=== PATIENT | female | born 1975 | race Caucasian/White ===

== ENCOUNTER 2017-08-07 09:49 | Inpatient (IN) | payer OTHER ==
[2017-07-17 08:45] VITALS: BMI 36.3
--- NOTE | 2017-08-07 01:24 | CP.PCM.HP ---
History of Present Illness - History of Present Illness History of Present Illness: 42yo with h/o large fibroid and menorrhagia reporting here today for hysterectomy. The risk, benefits and alternatives had been d/w the patient and all questions had been answered. Pt had opted to go for the procedured and a consent has been obtained. Present on Admission - Present on Admission Any Indicators Present on Admission: No Past Patient History - Infectious Disease Hx of Infectious Diseases: None - Past Medical History & Family History Past Medical History?: Yes - Past Social History Smoking Status: Never Smoked - CARDIAC Hx Cardiac Disorders: Yes Hx Hypercholesterolemia: Yes - PULMONARY Hx Respiratory Disorders: No - NEUROLOGICAL Hx Neurological Disorder: No - HEENT Hx HEENT Problems: No - RENAL Hx Chronic Kidney Disease: No - ENDOCRINE/METABOLIC Hx Endocrine Disorders: Yes Hx Hypothyroidism: Yes - HEMATOLOGICAL/ONCOLOGICAL Hx Blood Disorders: No - INTEGUMENTARY Hx Dermatological Problems: No - MUSCULOSKELETAL/RHEUMATOLOGICAL Hx Musculoskeletal Disorders: Yes Other/Comment: SHOULDER PAIN - GASTROINTESTINAL Hx Gastrointestinal Disorders: No - GENITOURINARY/GYNECOLOGICAL Hx Genitourinary Disorders: Yes Other/Comment: HX:ovarian cyst. HX: UTERINE LEIOMYOMA : 4 Para: 4 - PSYCHIATRIC Hx Psychophysiologic Disorder: No Hx Substance Use: No - SURGICAL HISTORY Hx Surgeries: No - ANESTHESIA Hx Anesthesia: No Meds Allergies/Adverse Reactions: Allergies Allergy/AdvReac Type Severity Reaction Status Date / Time No Known Allergies Allergy Verified 03/05/17 12:26 Physical Exam - Constitutional Appears: Well - Eye Exam Eye Exam: EOMI - Respiratory Exam Respiratory Exam: Clear to Auscultation Bilateral, NORMAL BREATHING PATTERN - Cardiovascular Exam Cardiovascular Exam: REGULAR RHYTHM, RRR - GI/Abdominal Exam GI & Abdominal Exam: Normal Bowel Sounds, Soft - Exam External exam: NORMAL EXTERNAL EXAM Bimanual exam: Uterine Enlargement - Extremities Exam Extremities exam: Positive for: normal inspection - Neurological Exam Neurological exam: Oriented x3 - Skin Skin Exam: Normal Color Assessment & Plan (1) Excessive and frequent menstruation with regular cycle Status: Acute (2) Leiomyoma of uterus Status: Acute - Assessment and Plan (Free Text) Plan: NPO IV Fluids Mefoxin 2gms IVPB before incision Sequential Compression Device - Date & Time Date: 08/07/17 Time: 08:30 Decision To Admit - Pt Status Changed To: Hospital Disposition Of: Inpatient - Admit Certification Admit to Inpatient:: After my assessment, the patient will require hospitalization for at least two midnights. This is because of the severity of symptoms shown, intensity of services needed, and/or the medical risk in this patient being treated as an outpatient. - InPatient: Physician Admission Certification:: scott - . 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
[2017-08-07] MEDS ORDERED: Clindamycin 2% Vaginal Cream(40 gm) ONE (13:03)
[2017-08-07] MEDS ORDERED: Midazolam 2 MG/2 ML VIAL ONE (13:13)
[2017-08-07] MEDS ORDERED: Propofol 10 mg/ml Inj (20 ML) ONE (13:13)
[2017-08-07] MEDS ORDERED: Lidocaine Hydrochloride 5 ML INJ ONE (13:14)
[2017-08-07] MEDS ORDERED: Lactated Ringer's 1,000 ML IV ONE ×3 (13:38→16:09)
[2017-08-07] MEDS ORDERED: Rocuronium 10 mg/ml (5 ml) ONE (13:38)
[2017-08-07] MEDS ORDERED: cefOXitin IV 2 gm in Dextrose 2 GM/50 ML BAG IVPB ONE (13:43)
[2017-08-07] MEDS ORDERED: Vasopressin 20 Units/ml Inj ONE (13:44)
[2017-08-07] MEDS ORDERED: Neostigmine Methylsulfate 3mg/3ml Syringe IV ONE (15:50)
[2017-08-07] MEDS ORDERED: Oxycodone/Acetaminophen 5/325 mg Tab PO PRN ×2 (16:14→16:40)
[2017-08-07] MEDS ORDERED: Simethicone 80 mg Chewtab PO PRN (16:42)
[2017-08-07] MEDS: HYDROmorphone 0.5 mg/0.5 ml ISec IVP PRN ×3 (16:43→18:12)
[2017-08-07] MEDS ORDERED: Sodium Chloride 0.9% 1,000 ML IV SCH (16:45)
[2017-08-07] MEDS ORDERED: DiphenhydrAMINE 50 mg/ml Inj IVP PRN (17:26)
[2017-08-07] MEDS ORDERED: Naloxone 0.4 mg/ml Inj (Adult) IVP PRN (17:26)
[2017-08-07] MEDS: Sodium Chloride 0.9% 1,000 ML IV SCH (18:45)
[2017-08-07] MEDS: Morphine Monoject Barrel PCA 1mg/ml IV PRN (18:55)
[2017-08-07] MEDS ORDERED: Sodium Chloride 0.9% 1,000 ML IV ONE (18:55)
--- NOTE | 2017-08-07 20:28 | PCM.SURG1 ---
Surgeon's Initial Post Op Note - Surgeon's Notes Surgeon: Dr Toscano Rug Setter [place]: Brianda Coon( FP Resident ) Type of Anesthesia: General Endo Anesthesia Administered By: KIKO Roberts Supervised by Dr Farrell Pre-Operative Diagnosis: Fibroid Uterus with Menorrhagia Operative Findings: 12 week sized Anteverted Multinodular Fibroid uterus. Normal looking bilateral ovaries, left hydrosalpinx, normal looking Right fallopian tubes. IVF Intake- 3000mls. EBL- 500mls. Urine output- 400mls of clear urine Post-Operative Diagnosis: Same as Preop Diagnosis Operation Performed: Total Abdominal Hysterectomy and Bilateral Salpingectomy Specimen/Specimens Removed: Uterus with Cervix,. Bilateral fallopian tubes. Estimated Blood Loss: EBL {In ML}: 500 Post-Op Condition: Good Date of Surgery/Procedure: 08/07/17 Time of Surgery/Procedure: 16:10
[2017-08-07] MEDS ORDERED: Influenza Vaccine 60 mcg/0.5 mL SYR (4YR UP) IM ONE (21:00)
[2017-08-07] MEDS: cefOXitin IV 2 gm in Dextrose 2 GM/50 ML BAG IVPB SCH (22:01)
[2017-08-07] MEDS: Lactated Ringer's 1,000 ML IV SCH (23:46)
[2017-08-08] MEDS: cefOXitin IV 2 gm in Dextrose 2 GM/50 ML BAG IVPB SCH ×2 (05:21→13:23)
[2017-08-08] MEDS: Sodium Chloride 0.9% 1,000 ML IV SCH (05:22)
[2017-08-08 07:33] LABS: BASO % 0.3 % (0.0-2.0); EOS % 0.3 % (0.0-4.0); HEMATOCRIT 33.8 % (34.0-47.0); LYMPH # 1.7 K/uL (1.0-4.3); LYMPH % 19.5 % (20.0-40.0); MEAN CELL VOLUME 82.5 fL (81.0-99.0); MEAN CORPUSCULAR HEMOGLOBIN 27.4 pg (27.0-31.0); MEAN CORPUSCULAR HGB CONC 33.2 g/dL (33.0-37.0); MEAN PLATELET VOLUME 8.5 fL (7.2-11.7); MONO # 0.6 K/uL (0.0-0.8); MONO % 6.6 % (0.0-10.0); RED CELL DISTRIBUTION WIDTH 14.4 % (11.5-14.5); WHITE BLOOD COUNT 8.9 K/uL (4.8-10.8)
[2017-08-08 07:41] LABS: CHLORIDE 99 mmol/L (98-107); POTASSIUM 3.9 mmol/L (3.6-5.2); SODIUM 133 mmol/L (132-148)
[2017-08-08 07:44] LABS: ALKALINE PHOSPHATASE 53 U/L (38-126); ALT/SGPT 26 U/L (9-52); AST/SGOT 24 U/L (14-36); BILIRUBIN,TOTAL 0.6 mg/dL (0.2-1.3); BLOOD UREA NITROGEN 7 mg/dL (7-17); CARBON DIOXIDE 25 mmol/L (22-30); GFR AFRICAN-AMERICAN > 60; GLUCOSE,RANDOM 116 mg/dL (65-105); TOTAL PROTEIN 6.4 g/dL (6.3-8.3)
[2017-08-08 07:45] LABS: CALCIUM 7.8 mg/dl (8.6-10.4)
[2017-08-08] MEDS: Morphine Monoject Barrel PCA 1mg/ml IV PRN (07:48)
[2017-08-08] MEDS ORDERED: Pneumococcal 23-Valent Vaccine IM ONE (10:00)
[2017-08-08 14:44] LABS: BASO % 0.4 % (0.0-2.0); EOS % 0.3 % (0.0-4.0); HEMATOCRIT 34.3 % (34.0-47.0); LYMPH # 1.6 K/uL (1.0-4.3); LYMPH % 17.1 % (20.0-40.0); MEAN CELL VOLUME 82.3 fL (81.0-99.0); MEAN CORPUSCULAR HEMOGLOBIN 27.5 pg (27.0-31.0); MEAN CORPUSCULAR HGB CONC 33.5 g/dL (33.0-37.0); MEAN PLATELET VOLUME 8.1 fL (7.2-11.7); MONO # 0.5 K/uL (0.0-0.8); MONO % 5.3 % (0.0-10.0); RED CELL DISTRIBUTION WIDTH 14.4 % (11.5-14.5); WHITE BLOOD COUNT 9.4 K/uL (4.8-10.8)
--- NOTE | 2017-08-08 16:08 | CP.PCM.PN ---
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 Patient states she continues to have abdominal pain. Patient states she is still feeling nauseous and has not been able to eat very much today. Objective - Vital Signs/Intake and Output Vital Signs (last 24 hours): Temp Pulse Resp BP Pulse Ox 98.6 F 92 H 20 124/68 97 08/08/17 12:07 08/08/17 12:07 08/08/17 12:07 08/08/17 12:07 08/08/17 12:07 Intake and Output: 08/08/17 08/08/17 06:59 18:59 Intake Total 950 Output Total 950 1000 Balance -950 -50 - Medications Medications: Current Medications Diphenhydramine HCl (Benadryl) 25 mg IVP Q6 PRN PRN Reason: Itching / Pruritus Lactated Ringer's (Lactated Ringer's) 1,000 mls @ 150 mls/hr IV .Q6H40M [facility] Last Admin: 08/07/17 23:46 Dose: Not Given Ibuprofen (Motrin Tab) 600 mg PO Q6H PRN PRN Reason: Pain, Mild (1-3) Last Admin: 08/08/17 15:31 Dose: 600 mg Naloxone HCl (Narcan) 0.04 mg IVP Q2M PRN PRN Reason: To reverse sedation Ondansetron HCl (Zofran Inj) 4 mg IVP Q8H PRN PRN Reason: Nausea/Vomiting Last Admin: 08/08/17 14:27 Dose: 4 mg Oxycodone/Acetaminophen (Percocet 5/325 Mg Tab) 1 tab PO Q4 PRN PRN Reason: Pain, moderate (4-7) Stop: 08/10/17 16:15 Oxycodone/Acetaminophen (Percocet 5/325 Mg Tab) 2 tab PO Q4 PRN PRN Reason: Pain, severe (8-10) Stop: 08/10/17 16:41 Last Admin: 08/08/17 12:08 Dose: 2 tab Simethicone (Mylicon Chew Tab) 80 mg PO Q6H PRN PRN Reason: GI distress - Labs Labs: 08/08/17 14:38 08/08/17 07:20 - Constitutional Appears: In Acute Distress - Head Exam Head Exam: ATRAUMATIC, NORMAL INSPECTION, NORMOCEPHALIC - Eye Exam Eye Exam: EOMI, Normal appearance - ENT Exam ENT Exam: Mucous Membranes Moist - Respiratory Exam Respiratory Exam: Clear to Ausculation Bilateral, NORMAL BREATHING PATTERN - Cardiovascular Exam Cardiovascular Exam: REGULAR RHYTHM, RRR - GI/Abdominal Exam GI & Abdominal Exam: Soft, Tenderness, Normal Bowel Sounds Additional comments: Abdominal incision is dry and intact. - Extremities Exam Extremities Exam: Normal Inspection. absent: Pedal Edema, Tenderness - Neurological Exam Neurological Exam: Alert, Awake, Oriented x3 - Psychiatric Exam Psychiatric exam: Normal Affect, Normal Mood - Skin Skin Exam: Normal Color, Warm Assessment and Plan - Assessment and Plan (Free Text) Assessment: 1.) Total Abdominal Hysterectomy and Bilateral Salpingectomy - s/p post op day 1 - H/H: 11.2/33.8 - Repeat H/H: 11.5/34.3 - Diet Advanced - Hook Removed - Continue pain management - Encourage ambulation Case discussed with Dr. Everton Pete PGY-1
[2017-08-08] MEDS: Lactated Ringer's 1,000 ML IV SCH (19:35)
[2017-08-09] MEDS ORDERED: Influenza Virus Vaccine 45 mcg/0.5 ml Syr (36 months - 7 yrs) IM ONE (10:00)
[2017-08-09] MEDS ORDERED: Aluminum Hydroxide/Magnesium Hydroxide Susp (30 mL) PO PRN (10:07)
[2017-08-09 10:48] VITALS: RESP 20
--- NOTE | 2017-08-09 17:20 | CP.PCM.DIS ---
Provider - Provider Date of Admission: 08/07/17 16:15 Attending physician: Edgar Toscano Time Spent in preparation of Discharge (in minutes): 40 Hospital Course - Lab Results Lab Results: Most Recent Lab Values WBC 9.4 K/uL (4.8-10.8) 08/08/17 14:38 RBC 4.17 Mil/uL (3.80-5.20) 08/08/17 14:38 Hgb 11.5 g/dL (11.0-16.0) 08/08/17 14:38 Hct 34.3 % (34.0-47.0) 08/08/17 14:38 MCV 82.3 fL (81.0-99.0) 08/08/17 14:38 MCH 27.5 pg (27.0-31.0) 08/08/17 14:38 MCHC 33.5 g/dL (33.0-37.0) 08/08/17 14:38 RDW 14.4 % (11.5-14.5) 08/08/17 14:38 Plt Count 194 K/uL (130-400) 08/08/17 14:38 MPV 8.1 fL (7.2-11.7) 08/08/17 14:38 Neut % (Auto) 76.9 % (50.0-75.0) H 08/08/17 14:38 Lymph % (Auto) 17.1 % (20.0-40.0) L 08/08/17 14:38 [place] % (Auto) 5.3 % (0.0-10.0) 08/08/17 14:38 Eos % (Auto) 0.3 % (0.0-4.0) 08/08/17 14:38 Baso % (Auto) 0.4 % (0.0-2.0) 08/08/17 14:38 Neut # 7.2 K/uL (1.8-7.0) H 08/08/17 14:38 Lymph # 1.6 K/uL (1.0-4.3) 08/08/17 14:38 [place]shaw # 0.5 K/uL (0.0-0.8) 08/08/17 14:38 Eos # 0.0 K/uL (0.0-0.7) 08/08/17 14:38 Baso # 0.0 K/uL (0.0-0.2) 08/08/17 14:38 Sodium 133 mmol/L (132-148) 08/08/17 07:20 Potassium 3.9 mmol/L (3.6-5.2) 08/08/17 07:20 Chloride 99 mmol/L (98-107) 08/08/17 07:20 Carbon Dioxide 25 mmol/L (22-30) 08/08/17 07:20 Anion Gap 13 (10-20) 08/08/17 07:20 BUN 7 mg/dL (7-17) 08/08/17 07:20 Creatinine 0.6 mg/dL (0.7-1.2) L 08/08/17 07:20 Est GFR ( Amer) > 60 08/08/17 07:20 Est GFR (Non-Af Amer) > 60 08/08/17 07:20 Random Glucose 116 mg/dL (65-105) H 08/08/17 07:20 Calcium 7.8 mg/dl (8.6-10.4) L 08/08/17 07:20 Total Bilirubin 0.6 mg/dL (0.2-1.3) 08/08/17 07:20 AST 24 U/L (14-36) 08/08/17 07:20 ALT 26 U/L (9-52) 08/08/17 07:20 Alkaline Phosphatase 53 U/L (38-126) 08/08/17 07:20 Total Protein 6.4 g/dL (6.3-8.3) 08/08/17 07:20 Albumin 3.2 g/dL (3.5-5.0) L D 08/08/17 07:20 Globulin 3.2 gm/dL (2.2-3.9) 08/08/17 07:20 Albumin/Globulin Ratio 1.0 (1.0-2.1) 08/08/17 07:20 Blood Type B POSITIVE 08/07/17 10:56 Antibody Screen Negative 08/07/17 10:56 - Hospital Course Hospital Course: 42yo with h/o large fibroid and menorrhagia reporting here today for hysterectomy. The risk, benefits and alternatives had been d/w the patient and all questions had been answered. Pt had opted to go for the procedured and a consent has been obtained. Hospital Course: Total Abdominal Hysterectomy and Bilateral Salpingectomy performed by Dr. Toscano on 08/07/17. 12 week sized Anteverted Multinodular Fibroid uterus. Normal looking bilateral ovaries, left hydrosalpinx, normal looking Right fallopian tubes. Patient was seen and examined at bedside in the morning and afternoon. Patient states she is ambulating and passing gas. Patient denies nausea and vomiting. Patient states she continues to have pain but with improvement and would like to go home. Patient is hemodynamically stable. Patient stable to be discharged home per Dr. Toscano. Patient to continue home medications. Patient to start new medications: Percocet every 4 hours as needed for severe pain. Motrin 600mg every 6 hours as needed for mild to moderate pain. Cephalxin 500mg every 8 hours for 5 days. No heavy lifting. Keep abdominal wound clean and dry. Patient instructed to follow up with Dr. Toscano in the clinic in one week. Please call [phone] to make an appointment. Discharge Exam - Head Exam Head Exam: ATRAUMATIC, NORMAL INSPECTION, NORMOCEPHALIC - Eye Exam Eye Exam: EOMI, Normal appearance - ENT Exam ENT Exam: Mucous Membranes Moist - Respiratory Exam Respiratory Exam: NORMAL BREATHING PATTERN - Cardiovascular Exam Cardiovascular Exam: REGULAR RHYTHM, RRR - GI/Abdominal Exam GI & Abdominal Exam: Normal Bowel Sounds, Soft, Tenderness Additional comments: abdominal incision is dry and intact. - Extremities Exam Extremities exam: normal inspection - Neurological Exam Neurological exam: Alert, Oriented x3 - Psychiatric Exam Psychiatric exam: Normal Affect, Normal Mood - Skin Skin Exam: Dry, Intact, Normal Color, Warm Discharge Plan - Discharge Medications Prescriptions: Cephalexin [Keflex] 500 mg PO Q8H #15 cap Ibuprofen [Motrin Tab] 600 mg PO Q6H PRN #28 tab PRN Reason: Pain, Mild (1-3) oxyCODONE/Acetaminophen [Percocet 5/325 mg Tab] 1 tab PO Q4 PRN #20 tab PRN Reason: Pain, Severe (8-10) - Follow Up Plan Condition: GOOD Disposition: HOME/ ROUTINE
[2017-08-09 18:13] VITALS: BP 94/48; PULSE 80; TEMP 98; O2SAT 100
--- NOTE | 2017-08-10 10:05 | OP ---
PROCEDURE DATE: PREOPERATIVE DIAGNOSES: A 42-year-old with fibroid uterus and menorrhagia, nonresponsive to hormone medications. POSTOPERATIVE DIAGNOSES: A 42-year-old with fibroid uterus and menorrhagia, nonresponsive to hormone medications. PROCEDURE DONE: Total abdominal hysterectomy and bilateral salpingectomy performed on 08/07/2017. SURGEON: Edgar Toscano MD SHELLFISH DREDGE OPERATOR: Wilbur Hernandez MD and Britney Pete, a family practice resident. Assistance to this procedure was needed for exposure of tissues and help in the conduct of the surgery. The assistants remained with the surgery throughout its entire length. TYPE OF ANESTHESIA: General endotracheal. ANESTHESIA ADMINISTERED BY: Alejandra HOOVER, supervised by Dr. Viral Farrell. OPERATIVE FINDINGS: A 12-week size anteverted multinodular fibroid uterus. Both fallopian tubes and ovaries on both sides appeared normal. There was a mild hydrosalpinx of the left fallopian tube. INTRAVENOUS FLUID INTAKE: 3000 mL. ESTIMATED BLOOD LOSS: 500 mL. URINE OUTPUT: 400 mL of clear urine. COMPLICATIONS: There were no complications. SPECIMEN: Uterus to pathology. DESCRIPTION OF THE PROCEDURE: The patient was taken to the OR with IV running and a pneumatic compression stockings applied to the lower extremities. General anesthesia was obtained without difficulty. The patient was examined under anesthesia with the findings noted above. The patient was prepped and draped in the sterile fashion. A Hook catheter was inserted and the bladder was emptied. A Pfannenstiel skin incision was made with a scalpel. The incision was carried down to the fascia with a Bovie. The fascia was incised and extended laterally. A inferior aspect of the fascia was grasped with Satya clamp. The rectus fascia was set with both inferiorly and superiorly from the underlying rectus muscles. The rectus muscle was in the midline to expose the peritoneum, which was tented between 2 Jyothi clamps and entered sharply with good visualization of the bladder. Once the abdominal cavity was entered, the above findings were noted and O'Dimitri-O'Barry retractor was placed and the bowels were packed away using moist sponges. The patient was put in a Trendelenburg position, long Jyothi clamps were used to bring the uterus up and a uterine cork screw was placed in the fundus to help with traction. Upward traction was applied to facilitate exposure and dissection. The round ligament was identified and was cut using the LigaSure device on both sides. The anterior leaf of the broad ligament was dissected to the midline from the vesicouterine peritoneum. The bladder was dissected off the lower uterine segment. A was created in an avascular area of the posterior leaf. The ovarian ligament and fallopian tube on the left side was clamped, cut and doubly ligated. The same procedure was repeated on the other side. The ureter was identified on the medial leaf of the broad ligament. Then uterine vessels were initially skeletonized bilaterally using Metzenbaum scissors. These were clamped bilaterally using Herb clamps, cut and doubly ligated on both sides. The sequential clamping of tissues along cervix to vaginal cuff was also done using Vicryl number 0. Once the cervicovaginal junction was encountered, the uterus was amputated from the vagina vault using the Bovie. The uterus was taken and given for pathological evaluation. The vaginal cuff was then closed using a number 0 Vicryl in the [id number] fashion. While the procedure and closure of vault have been completed, attention was turned to both adnexae where both fallopian tubes were picked with [place] forceps and the broad ligament under these segments were grasped with LigaSure device, cauterized and then transected with the same device. Irrigation of the pelvis was conducted after this procedure. Once the hemostasis was achieved, attention was turned over to the anterior abdominal wall, which was closed in layers with 2-0 Vicryl for the peritoneum and rectus muscles. The rectus fascia was brought together using number 0 Vicryl. The subcutaneous tissue was reapproximated using number 2-0 plain catgut. The skin was closed in a subcuticular fashion using number 4-0 Vicryl. All counts of instruments, laparotomy pads and needles used were correct x3, and the patient was sent to the recovery room awake and in stable condition. Edgar Toscano MD MTDDenice
== END 2017-08-09 22:00 | disposition home or self-care (01) | DRG 359 ==
LOC: C.SDS 09:49 → C.6T 16:15
PROVIDERS: ADMIT Obstetrics & Gynecology; ATTEND Obstetrics & Gynecology
PROC: 0UT70ZZ Resection of Bilateral Fallopian Tubes, Open Approach (ICD-10-PCS; 2017-08-07)
PROC: 0UTC0ZZ Resection of Cervix, Open Approach (ICD-10-PCS; 2017-08-07)
PROC: 0UT90ZZ Resection of Uterus, Open Approach (ICD-10-PCS; principal; 2017-08-07 13:38)
DX: D25.1 Intramural leiomyoma of uterus (principal); E03.9 Hypothyroidism, unspecified; N70.11 Chronic salpingitis; N92.0 Excessive and frequent menstruation with regular cycle; E78.00 Pure hypercholesterolemia, unspecified